=== PATIENT | female | born 1965 | race Caucasian/White ===

== ENCOUNTER → 2023-01-17 14:15 | Outpatient (BNVA) | payer BC, SELFPAY | PROVIDERS: Visit Provider Orthopaedic Surgery | DX: M47.817 Spondylosis without myelopathy or radiculopathy, lumbosacral region (principal); M48.07 Spinal stenosis, lumbosacral region | CPT/HCPCS: 72110 ==

== ENCOUNTER 2023-04-10 13:16 | Outpatient (CLI) | payer BC, SELFPAY ==
--- NOTE | 2023-04-10 13:45 | MR_ITS ---
WS: [id number] MRI LUMBAR SPINE NONCONTRAST HISTORY: low back pain COMPARISON: None available. TECHNIQUE: Sagittal and axial multisequence imaging is submitted. Posterior lumbar alignment is normal. No fractures or acute marrow edema. Mild reactive marrow edema along the endplates of L5 and S1. Moderate disc space narrowing and desiccation at L5-S1. Conus terminates normally at L1-2 disc level. L1-L2: Normal. L2-L3: Mild ligamentum flavum and facet arthritis. L3-L4: Mild ligamentum flavum and facet arthritis. L4-L5: Mild annular disc bulging with mild ligamentum flavum and facet arthritis. Very mild narrowing of the foramina. L5-S1: Mild annular disc bulging. Moderate size RIGHT lateral recess disc protrusion contacts the RIG HT S1 nerve root and slightly displaces the nerve root. There is additional disc extending into the R IGHT foramen contacting the L5 nerve root. Smaller disc protrusion LEFT foramen. Paravertebral soft tissues are normal. MR/MR lumbar spine wo con* [id number] IMPRESSION: 1. Moderate degenerative disc space narrowing and desiccation at L5-S1. 2. Moderate size RIGHT lateral recess disc protrusion at L5-S1 contacting and slightly displacing the RIGHT S1 nerve root. Additional smaller disc protrusion s bilaterally in the foramina. Mild bilateral foraminal stenosis. 3. Very mild foraminal narrowing at L4-5 due to mild facet and disc disease.
== END 2023-04-10 13:17 | disposition home or self-care (01) ==
PROVIDERS: PCP Orthopaedic Surgery; Visit Provider Orthopaedic Surgery
DX: M51.37 Other intervertebral disc degeneration, lumbosacral region (principal); M51.27 Other intervertebral disc displacement, lumbosacral region; M47.816 Spondylosis without myelopathy or radiculopathy, lumbar region; M48.07 Spinal stenosis, lumbosacral region
CPT/HCPCS: 72148